=== PATIENT | female | born 2000 | race African-American/Black ===

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

== ENCOUNTER 2021-02-13 00:04 | Emergency (ER) | payer OTHER | END 2021-02-13 03:17 | disposition home or self-care (01) | LOC: ERS 00:04 | DX: G40.909 Epilepsy, unspecified, not intractable, without status epilepticus (principal); Z79.899 Other long term (current) drug therapy; J45.909 Unspecified asthma, uncomplicated | CPT/HCPCS: 80177; 99284 ==

== ENCOUNTER 2021-02-27 18:18 | Emergency (ER) | payer OTHER ==
[2021-02-28 11:01] LABS: SARS-CoV-2 PCR by NAA Not Detected (NotDetected)
== END 2021-02-27 18:57 | disposition home or self-care (01) ==
LOC: ERS 18:18
DX: R05 Cough (principal); Z20.822 Contact with and (suspected) exposure to COVID-19
CPT/HCPCS: 99283; U0003; U0005

== ENCOUNTER 2021-04-04 18:49 | Emergency (ER) | payer OTHER ==
[2021-04-04] MEDS ORDERED: levETIRAcetam 500 MG/100 ML PREMIX BAG ONE ×2 (19:20→19:22)
[2021-04-04] MEDS ORDERED: levETIRAcetam in NS 100 ML ONE (19:20)
[2021-04-04 19:30] LABS: #Eosinphils 0.1 thou/uL (0.0-0.7); #Lymphocytes 2.6 thou/uL (1.20-3.40); #Monocytes 0.4 thou/uL (0.11-0.59); #Neutrophils 2.9 thou/uL (1.40-6.50); %Basophils 0.6 % (0.0-1.0); %Lymphocytes 43.2 % (28.0-48.0); %Monocytes 5.9 % (0.0-4.0); %Neutrophils 48.3 % (31.0-61.0); Mean Corpuscular HGB CONC 33.8 g/dL (32.0-36.0); Mean Corpuscular Hemoglobin 26.8 pg (25.0-35.0); Mean Corpuscular Volume 79.2 fL (78.0-98.0); Mean Platelet Volume 7.5 fL (7.4-10.4); Platelet Count 322 thou/uL (130-400); RBC Distribution Width 11.9 % (11.5-14.5); Red Blood Cell (RBC) Count 4.49 mill/uL (4.00-5.20); White Blood Cell (WBC) Count 6.1 thou/uL (4.8-10.8)
[2021-04-04 19:55] LABS: ALT (SGPT) 9 U/L (8-55); AST (SGOT) 13 U/L (5-30); Albumin 4.1 g/dL (3.5-5.0); Alkaline Phosphatase 64 U/L (40-100); Anion Gap 12 mmol/L (10-20); BUN (Urea Nitrogen) 11 mg/dL (8.4-21.0); Bilirubin, Total 0.3 mg/dL (0.2-1.2); Calc. Creatinine Clearance 0 mL/min (70-130); Calcium 9.2 mg/dL (7.8-10.44); Carbon Dioxide 22 mmol/L (22-29); Chloride 108 mmol/L (98-107); Globulin 3.1 g/dL (2.4-3.5); Glucose 103 mg/dL (70-105); Potassium 3.9 mmol/L (3.5-5.1); Protein, Total 7.2 g/dL (6.0-8.3); Sodium 138 mmol/L (136-145)
[2021-04-04 21:12] LABS: Bilirubin Negative (Negative); Blood, Urine Negative (Negative); Clarity Clear (Clear); Glucose, Urine (Dipstick) Normal (Negative); Ketone, Urine Negative (Negative); Leukocyte Negative Leu/uL (Negative); Nitrite Negative (Negative); Protein, Urine (Dipstick) Negative (Neg-Trace); Specific Gravity, Urine 1.025 (1.002-1.036); Urobilinogen Normal mg/dL (Less than 2)
== END 2021-04-04 21:21 | disposition home or self-care (01) ==
LOC: ERS 18:49
DX: G40.909 Epilepsy, unspecified, not intractable, without status epilepticus (principal); J45.909 Unspecified asthma, uncomplicated; F17.290 Nicotine dependence, other tobacco product, uncomplicated; Z79.899 Other long term (current) drug therapy
CPT/HCPCS: 36415; 36416; 80053; 81003; 85025; 93005; 96374; J1953

== ENCOUNTER 2021-05-20 12:27 | Emergency (ER) | payer OTHER ==
[2021-05-20 13:32] LABS: #Basophils 0.1 thou/uL (0.0-0.2); #Eosinphils 0.1 thou/uL (0.0-0.7); #Lymphocytes 2.2 thou/uL (1.20-3.40); #Monocytes 0.5 thou/uL (0.11-0.59); %Basophils 0.9 % (0.0-1.0); %Eosinophils 1.8 % (0.0-10.0); %Lymphocytes 37.5 % (28.0-48.0); %Neutrophils 51.9 % (31.0-61.0); Hemoglobin 12.4 g/dL (12.0-16.0); Mean Corpuscular HGB CONC 32.5 g/dL (32.0-36.0); Mean Corpuscular Hemoglobin 26.3 pg (25.0-35.0); Mean Corpuscular Volume 80.9 fL (78.0-98.0); Mean Platelet Volume 7.6 fL (7.4-10.4); Platelet Count 297 thou/uL (130-400); RBC Distribution Width 12.7 % (11.5-14.5); Red Blood Cell (RBC) Count 4.71 mill/uL (4.00-5.20); White Blood Cell (WBC) Count 5.8 thou/uL (4.8-10.8)
[2021-05-20 13:40] LABS: BHCG - Serum Negative (NEGATIVE); Pregs Control Background? CLEAR/WHITE (CLR/WHITE); Pregs Control Bar Appear? YES (CONTROL BAR)
[2021-05-20 13:53] LABS: ALT (SGPT) 13 U/L (8-55); AST (SGOT) 13 U/L (5-30); Alkaline Phosphatase 62 U/L (40-100); Anion Gap 10 mmol/L (10-20); BUN (Urea Nitrogen) 7 mg/dL (8.4-21.0); Bilirubin, Total 0.4 mg/dL (0.2-1.2); Calc. Creatinine Clearance 0 mL/min (70-130); Calcium 9.1 mg/dL (7.8-10.44); Carbon Dioxide 23 mmol/L (22-29); Chloride 110 mmol/L (98-107); Globulin 3.1 g/dL (2.4-3.5); Glucose 74 mg/dL (70-105); Potassium 3.6 mmol/L (3.5-5.1); Protein, Total 7.1 g/dL (6.0-8.3); Sodium 139 mmol/L (136-145)
[2021-05-20] MEDS ORDERED: levETIRAcetam in NS 100 ML ONE (14:10)
[2021-05-20 14:49] LABS: Bilirubin Negative (Negative); Blood, Urine Negative (Negative); Clarity Clear (Clear); Glucose, Urine (Dipstick) Normal (Negative); Ketone, Urine Negative (Negative); Leukocyte Negative Leu/uL (Negative); Nitrite Negative (Negative); Protein, Urine (Dipstick) Negative (Neg-Trace); Specific Gravity, Urine 1.016 (1.002-1.036); Urobilinogen Normal mg/dL (Less than 2); pH, Urine 6.5 (5.0-9.0)
[2021-05-20 14:57] LABS: Amphetamine Not Detected (NotDetected); Barbiturates Screen Not Detected (NotDetected); Benzodiazepine Screen Not Detected (NotDetected); Cocaine Metabolite Screen Not Detected (NotDetected); Methadone Not Detected (NotDetected); Methamphetamine Not Detected (NotDetected); Opiate Screen Not Detected (NotDetected); Oxycodone Screen Not Detected (NotDetected); Phencyclidine (PCP) Not Detected (NotDetected); THC/Cannabinoid Screen Not Detected (NotDetected); Tricyclic Screen Not Detected (NotDetected)
== END 2021-05-20 14:38 | disposition home or self-care (01) ==
LOC: ERS 12:27
DX: G40.409 Other generalized epilepsy and epileptic syndromes, not intractable, without status epilepticus (principal); Z91.14 Patient's other noncompliance with medication regimen; Z79.899 Other long term (current) drug therapy
CPT/HCPCS: 36415; 80053; 80177; 80306; 81003; 84146; 84703; 85025; 96374; J1953

== ENCOUNTER 2021-06-09 03:01 | Emergency (ER) | payer OTHER ==
[2021-06-09] MEDS ORDERED: levETIRAcetam in NS 100 ML ONE (03:43)
== END 2021-06-09 04:35 | disposition home or self-care (01) ==
LOC: ERS 03:01
DX: G40.909 Epilepsy, unspecified, not intractable, without status epilepticus (principal); J45.909 Unspecified asthma, uncomplicated; Z79.899 Other long term (current) drug therapy
CPT/HCPCS: 99284; J1953

== ENCOUNTER 2021-06-16 12:21 | Emergency (ER) | payer OTHER ==
[2021-06-16] MEDS ORDERED: Lorazepam 2 MG/ML VIAL ONE (12:34)
[2021-06-16] MEDS ORDERED: levETIRAcetam in NS 100 ML ONE (13:10)
[2021-06-16 14:34] LABS: #Basophils 0.1 thou/uL (0.0-0.2); #Eosinphils 0.2 thou/uL (0.0-0.7); #Lymphocytes 2.6 thou/uL (1.20-3.40); #Monocytes 0.5 thou/uL (0.11-0.59); #Neutrophils 2.7 thou/uL (1.40-6.50); %Basophils 1.4 % (0.0-1.0); %Eosinophils 3.7 % (0.0-10.0); %Lymphocytes 42.4 % (28.0-48.0); %Monocytes 8.1 % (0.0-4.0); %Neutrophils 44.4 % (31.0-61.0); Hemoglobin 13.2 g/dL (12.0-16.0); Mean Corpuscular HGB CONC 33.3 g/dL (32.0-36.0); Mean Corpuscular Hemoglobin 27.4 pg (25.0-35.0); Mean Platelet Volume 7.4 fL (7.4-10.4); Platelet Count 308 thou/uL (130-400); RBC Distribution Width 12.7 % (11.5-14.5); Red Blood Cell (RBC) Count 4.81 mill/uL (4.00-5.20)
[2021-06-16 14:41] LABS: BHCG - Serum Negative (NEGATIVE); Pregs Control Background? CLEAR/WHITE (CLR/WHITE); Pregs Control Bar Appear? YES (CONTROL BAR)
[2021-06-16 14:57] LABS: Acetaminophen Less than 6.0 mcg/mL (10.0-30.0); Alcohol Less than 10 mg/dL (Less than 10); Anion Gap 10 mmol/L (10-20); BUN (Urea Nitrogen) 7 mg/dL (8.4-21.0); Calc. Creatinine Clearance 0 mL/min (70-130); Carbon Dioxide 24 mmol/L (22-29); Chloride 107 mmol/L (98-107); Glucose 71 mg/dL (70-105); Potassium 3.7 mmol/L (3.5-5.1); Salicylate Less than 8.0 mg/dL (15.0-30.0); Sodium 137 mmol/L (136-145)
[2021-06-16 15:38] LABS: Bilirubin Negative (Negative); Blood, Urine Negative (Negative); Clarity Clear (Clear); Glucose, Urine (Dipstick) Normal (Negative); Ketone, Urine Negative (Negative); Leukocyte Negative Leu/uL (Negative); Nitrite Negative (Negative); Protein, Urine (Dipstick) Negative (Neg-Trace); Specific Gravity, Urine 1.014 (1.002-1.036); Urobilinogen Normal mg/dL (Less than 2)
== END 2021-06-16 17:00 | disposition home or self-care (01) ==
LOC: ERS 12:21
DX: R56.9 Unspecified convulsions (principal); J45.909 Unspecified asthma, uncomplicated
CPT/HCPCS: 36415; 70450; 71045; 72125; 80048; 80307; 81003; 84703; 85025; 93005; 96374; 96375; J1953; J2060

== ENCOUNTER 2021-07-29 12:31 | Emergency (ER) | payer OTHER ==
[2021-07-29] MEDS ORDERED: levETIRAcetam in NS 100 ML ONE (12:57)
[2021-07-29] MEDS ORDERED: levETIRAcetam in NS 100 ML IVPB SCH (13:00)
[2021-07-29] MEDS ORDERED: Acetaminophen 500 MG TAB ONE (13:25)
[2021-07-29 13:51] LABS: BHCG - Serum Negative (NEGATIVE); Pregs Control Background? CLEAR/WHITE (CLR/WHITE); Pregs Control Bar Appear? YES (CONTROL BAR)
== END 2021-07-29 14:48 | disposition home or self-care (01) ==
LOC: ERS 12:31
DX: G40.909 Epilepsy, unspecified, not intractable, without status epilepticus (principal); J45.909 Unspecified asthma, uncomplicated; F17.290 Nicotine dependence, other tobacco product, uncomplicated
CPT/HCPCS: 36415; 36416; 80177; 80185; 84703; 96365; J1953

== ENCOUNTER 2022-02-07 15:03 | Emergency (ER) | payer OTHER ==
[2022-02-07] MEDS ORDERED: Fosphenytoin Sodium 1,500 MG in Sodium Chloride 0.9% 50 ML IVPB SCH (16:15)
[2022-02-07 16:35] LABS: #Basophils 0.1 thou/uL (0.0-0.2); #Eosinphils 0.4 thou/uL (0.0-0.7); #Lymphocytes 2.4 thou/uL (1.20-3.40); #Monocytes 0.5 thou/uL (0.11-0.59); #Neutrophils 3.6 thou/uL (1.40-6.50); %Eosinophils 5.5 % (0.0-10.0); %Lymphocytes 34.4 % (28.0-48.0); %Monocytes 7.5 % (0.0-4.0); %Neutrophils 51.6 % (31.0-61.0); Hemoglobin 13.8 g/dL (12.0-16.0); Mean Corpuscular HGB CONC 31.1 g/dL (32.0-36.0); Mean Corpuscular Hemoglobin 26.4 pg (25.0-35.0); Mean Corpuscular Volume 85.1 fL (78.0-98.0); Mean Platelet Volume 8.8 fL (7.4-10.4); Platelet Count 269 thou/uL (130-400); RBC Distribution Width 12.7 % (11.5-14.5); Red Blood Cell (RBC) Count 5.23 mill/uL (4.00-5.20)
[2022-02-07] MEDS ORDERED: Ondansetron PF 4 MG/2 ML Vial ONE (16:38)
[2022-02-07 16:58] LABS: ALT (SGPT) 16 U/L (8-55); AST (SGOT) 15 U/L (5-34); Albumin 4.4 g/dL (3.5-5.0); Alkaline Phosphatase 70 U/L (40-100); Anion Gap 14 mmol/L (10-20); BUN (Urea Nitrogen) 11 mg/dL (7.0-18.7); Bilirubin, Total 0.3 mg/dL (0.2-1.2); Calc. Creatinine Clearance 0 mL/min (70-130); Calcium 9.5 mg/dL (7.8-10.44); Carbon Dioxide 22 mmol/L (22-29); Chloride 105 mmol/L (98-107); Globulin 3.3 g/dL (2.4-3.5); Glucose 69 mg/dL (70-105); Potassium 3.9 mmol/L (3.5-5.1); Protein, Total 7.7 g/dL (6.0-8.3); Sodium 137 mmol/L (136-145)
[2022-02-07 17:16] LABS: Bilirubin Negative (Negative); Blood, Urine Negative (Negative); Glucose, Urine (Dipstick) Negative (Negative); Ketone, Urine Negative (Negative); Leukocyte Negative (Negative); Nitrite Negative (Negative); Protein, Urine (Dipstick) Negative (Neg-Trace); Specific Gravity, Urine 1.015 (1.005-1.030); Urobilinogen 0.2 mg/dL (Less than 2)
[2022-02-07 17:19] LABS: Clarity Clear (Clear)
== END 2022-02-07 18:35 | disposition home or self-care (01) ==
LOC: ERS 15:03
DX: G40.901 Epilepsy, unspecified, not intractable, with status epilepticus (principal); S09.90XA Unspecified injury of head, initial encounter; Z79.899 Other long term (current) drug therapy; X58.XXXA Exposure to other specified factors, initial encounter
CPT/HCPCS: 36415; 70450; 80053; 81003; 85025; 93005; 96365; 96375; J2405; Q2009

== ENCOUNTER 2022-03-23 17:29 | Emergency (ER) | payer OTHER | END 2022-03-23 18:16 | disposition home or self-care (01) | LOC: ERS 17:29 | DX: B34.9 Viral infection, unspecified (principal); J45.909 Unspecified asthma, uncomplicated; F17.290 Nicotine dependence, other tobacco product, uncomplicated; G40.409 Other generalized epilepsy and epileptic syndromes, not intractable, without status epilepticus; Z20.822 Contact with and (suspected) exposure to COVID-19 | CPT/HCPCS: 99283; U0003; U0005 ==

== ENCOUNTER 2022-04-19 09:37 | Emergency (ER) | payer OTHER ==
[2022-04-19] MEDS ORDERED: levETIRAcetam 500 MG/5 ML VIAL ONE (09:54)
[2022-04-19 10:06] LABS: #Eosinphils 0.1 thou/uL (0.0-0.7); #Lymphocytes 2.3 thou/uL (1.20-3.40); #Monocytes 0.5 thou/uL (0.11-0.59); #Neutrophils 2.6 thou/uL (1.40-6.50); %Basophils 0.7 % (0.0-1.0); %Eosinophils 2.2 % (0.0-10.0); %Lymphocytes 41.6 % (28.0-48.0); %Monocytes 8.2 % (0.0-4.0); %Neutrophils 47.3 % (31.0-61.0); Hemoglobin 13.9 g/dL (12.0-16.0); Mean Corpuscular HGB CONC 31.4 g/dL (32.0-36.0); Mean Corpuscular Hemoglobin 25.8 pg (25.0-35.0); Mean Corpuscular Volume 82.3 fL (78.0-98.0); Mean Platelet Volume 7.4 fL (7.4-10.4); Platelet Count 373 thou/uL (130-400); RBC Distribution Width 12.5 % (11.5-14.5); Red Blood Cell (RBC) Count 5.38 mill/uL (4.00-5.20); White Blood Cell (WBC) Count 5.5 thou/uL (4.8-10.8)
[2022-04-19 10:39] LABS: ALT (SGPT) 17 U/L (8-55); AST (SGOT) 19 U/L (5-34); Albumin 4.9 g/dL (3.5-5.0); Alkaline Phosphatase 70 U/L (40-100); Anion Gap 14 mmol/L (10-20); BUN (Urea Nitrogen) 11 mg/dL (7.0-18.7); Bilirubin, Total 0.6 mg/dL (0.2-1.2); Calc. Creatinine Clearance 0 mL/min (70-130); Calcium 9.7 mg/dL (7.8-10.44); Carbon Dioxide 22 mmol/L (22-29); Chloride 106 mmol/L (98-107); Estimated GFR 110; Globulin 3.7 g/dL (2.4-3.5); Glucose 91 mg/dL (70-105); Potassium 3.6 mmol/L (3.5-5.1); Protein, Total 8.6 g/dL (6.0-8.3); Sodium 138 mmol/L (136-145)
[2022-04-19] MEDS ORDERED: Fosphenytoin Sodium 1,250 MG in Sodium Chloride 0.9% 50 ML IVPB SCH (11:00)
[2022-04-19 12:19] LABS: Bacteria/HPF None Seen HPF (None Seen); Bilirubin Negative (Negative); Blood, Urine Negative (Negative); Clarity Clear (Clear); Glucose, Urine (Dipstick) Normal (Negative); Ketone, Urine Negative (Negative); Leukocyte 25 Leu/uL (Negative); Nitrite Negative (Negative); Pregnancy Test - Urine (BHCG) Negative (Negative); Pregu Control Background? CLEAR/WHITE (CLR/WHITE); Pregu Control Bar Appear? YES (CONTROL BAR); Protein, Urine (Dipstick) Negative (Neg-Trace); RBC/HPF 0-3 HPF (0-3); Specific Gravity 1.018 (1.002-1.036); Specific Gravity, Urine 1.018 (1.002-1.036); Urobilinogen Normal mg/dL (Less than 2); WBC/HPF 0-3 HPF (0-3); pH, Urine 6.5 (5.0-9.0)
== END 2022-04-19 13:08 | disposition home or self-care (01) ==
LOC: ERS 09:37
DX: G40.409 Other generalized epilepsy and epileptic syndromes, not intractable, without status epilepticus (principal); F17.290 Nicotine dependence, other tobacco product, uncomplicated
CPT/HCPCS: 80053; 81003; 81015; 81025; 85025; 93005; 96365; 96367; J1953; Q2009

== ENCOUNTER 2022-06-05 10:58 | Emergency (ER) | payer OTHER ==
[2022-06-05] MEDS ORDERED: Fosphenytoin Sodium 500 mg/10 ml Vial ONE (12:35)
[2022-06-05] MEDS ORDERED: Fosphenytoin Sodium 1,500 MG in Sodium Chloride 0.9% 50 ML IVPB SCH (13:15)
== END 2022-06-05 18:23 | disposition home or self-care (01) ==
LOC: ERS 10:58
DX: G40.409 Other generalized epilepsy and epileptic syndromes, not intractable, without status epilepticus (principal); W19.XXXA Unspecified fall, initial encounter
CPT/HCPCS: 70450; 72125; 80185; 93005; 96374; Q2009

== ENCOUNTER 2022-08-20 10:16 | Emergency (ER) | payer OTHER ==
[2022-08-20] MEDS ORDERED: LORazepam 2 MG/ML SYR.(CARPUJECT) ONE (10:44)
[2022-08-20 11:07] LABS: #Basophils 0.1 thou/uL (0.0-0.2); #Eosinphils 0.2 thou/uL (0.0-0.7); #Lymphocytes 2.3 thou/uL (1.20-3.40); #Monocytes 0.5 thou/uL (0.11-0.59); #Neutrophils 3.2 thou/uL (1.40-6.50); %Basophils 0.8 % (0.0-1.0); %Eosinophils 2.6 % (0.0-10.0); %Lymphocytes 37.7 % (28.0-48.0); %Neutrophils 50.9 % (31.0-61.0); Hemoglobin 13.8 g/dL (12.0-16.0); Mean Corpuscular HGB CONC 32.2 g/dL (32.0-36.0); Mean Corpuscular Hemoglobin 27.3 pg (25.0-35.0); Mean Corpuscular Volume 84.7 fl (78.0-98.0); Mean Platelet Volume 7.5 fL (7.4-10.4); Platelet Count 302 10x3/uL (130-400); RBC Distribution Width 12.1 % (11.5-14.5); Red Blood Cell (RBC) Count 5.05 mill/uL (4.00-5.20); White Blood Cell (WBC) Count 6.2 10x3/uL (4.8-10.8)
[2022-08-20 11:25] LABS: ALT (SGPT) 17 U/L (8-55); AST (SGOT) 15 U/L (5-34); Albumin 4.4 g/dL (3.5-5.0); Alkaline Phosphatase 76 U/L (40-100); Anion Gap 14 mmol/L (10-20); BUN (Urea Nitrogen) 13 mg/dL (7.0-18.7); Bilirubin, Total 0.3 mg/dL (0.2-1.2); Calc. Creatinine Clearance 0 mL/min (70-130); Calcium 9.2 mg/dL (7.8-10.44); Carbon Dioxide 20 mmol/L (22-29); Chloride 107 mmol/L (98-107); Estimated GFR 123; Globulin 3.3 g/dL (2.4-3.5); Glucose 95 mg/dL (70-105); Protein, Total 7.7 g/dL (6.0-8.3); Sodium 137 mmol/L (136-145)
[2022-08-20] MEDS ORDERED: levETIRAcetam 500 MG/5 ML VIAL ONE (11:34)
[2022-08-20] MEDS ORDERED: Fosphenytoin Sodium 500 mg/10 ml Vial ONE (12:02)
== END 2022-08-20 13:45 | disposition home or self-care (01) ==
LOC: ERS 10:16
DX: R56.9 Unspecified convulsions (principal)
CPT/HCPCS: 36415; 70450; 72125; 80053; 80177; 80185; 85025; 96365; 96367; J1953; J2060; Q2009

== ENCOUNTER 2022-08-21 21:05 | Emergency (ER) | payer OTHER ==
[2022-08-21 21:40] LABS: #Basophils 0.1 thou/uL (0.0-0.2); #Eosinphils 0.5 thou/uL (0.0-0.7); #Lymphocytes 3.1 thou/uL (1.20-3.40); #Monocytes 0.5 thou/uL (0.11-0.59); #Neutrophils 2.5 thou/uL (1.40-6.50); %Basophils 1.3 % (0.0-1.0); %Eosinophils 7.9 % (0.0-10.0); %Lymphocytes 46.1 % (28.0-48.0); %Monocytes 7.9 % (0.0-4.0); %Neutrophils 36.8 % (31.0-61.0); Hemoglobin 12.9 g/dL (12.0-16.0); Mean Corpuscular Hemoglobin 27.3 pg (25.0-35.0); Mean Corpuscular Volume 85.3 fl (78.0-98.0); Mean Platelet Volume 7.4 fL (7.4-10.4); Platelet Count 287 10x3/uL (130-400); Red Blood Cell (RBC) Count 4.72 mill/uL (4.00-5.20); White Blood Cell (WBC) Count 6.8 10x3/uL (4.8-10.8)
[2022-08-21 21:59] LABS: ALT (SGPT) 17 U/L (8-55); AST (SGOT) 15 U/L (5-34); Alkaline Phosphatase 79 U/L (40-100); Anion Gap 12 mmol/L (10-20); BUN (Urea Nitrogen) 7 mg/dL (7.0-18.7); Bilirubin, Total Less than 0.2 mg/dL (0.2-1.2); Calc. Creatinine Clearance 0 mL/min (70-130); Calcium 8.9 mg/dL (7.8-10.44); Carbon Dioxide 22 mmol/L (22-29); Chloride 109 mmol/L (98-107); Estimated GFR 108; Glucose 156 mg/dL (70-105); Potassium 4.3 mmol/L (3.5-5.1); Sodium 139 mmol/L (136-145)
[2022-08-21] MEDS ORDERED: diphenhydrAMINE 50 MG/ML VIAL ONE (22:47)
[2022-08-21] MEDS ORDERED: Metoclopramide HCl 10 MG/2 ML VIAL ONE (22:47)
[2022-08-21] MEDS ORDERED: Ketorolac Tromethamine 30 MG/ML VIAL ONE (22:47)
== END 2022-08-22 00:32 | disposition home or self-care (01) ==
LOC: ERS 21:05
DX: S06.0X0A Concussion without loss of consciousness, initial encounter (principal); R56.9 Unspecified convulsions; M62.838 Other muscle spasm; W18.09XA Striking against other object with subsequent fall, initial encounter
CPT/HCPCS: 36415; 71045; 72125; 80053; 85025; 93005; 96365; 96375; J1200; J1885; J2765